=== PATIENT | male | born 1940 | race Caucasian/White ===

== ENCOUNTER → 2017-02-21 | Outpatient (CLI) | payer MEDICARE, BC | END | disposition home or self-care (01) | LOC: PCVCCLINIC 14:00 | PROVIDERS: ATTEND Internal Medicine | DX: I25.10 Atherosclerotic heart disease of native coronary artery without angina pectoris (principal); E78.5 Hyperlipidemia, unspecified; I65.23 Occlusion and stenosis of bilateral carotid arteries; I35.0 Nonrheumatic aortic (valve) stenosis; I10 Essential (primary) hypertension; K21.9 Gastro-esophageal reflux disease without esophagitis; E78.00 Pure hypercholesterolemia, unspecified; Z95.0 Presence of cardiac pacemaker; Z95.1 Presence of aortocoronary bypass graft; Z79.82 Long term (current) use of aspirin; Z79.899 Other long term (current) drug therapy | CPT/HCPCS: 80061; 93005; G0463 ==

== ENCOUNTER → 2017-08-29 | Outpatient (CLI) | payer MEDICARE, BC | END | disposition home or self-care (01) | LOC: PCVCCLINIC 11:00 | DX: I25.119 Atherosclerotic heart disease of native coronary artery with unspecified angina pectoris (principal); I35.0 Nonrheumatic aortic (valve) stenosis; I65.23 Occlusion and stenosis of bilateral carotid arteries; I10 Essential (primary) hypertension; E78.5 Hyperlipidemia, unspecified; R94.31 Abnormal electrocardiogram [ECG] [EKG]; Z95.0 Presence of cardiac pacemaker; Z79.899 Other long term (current) drug therapy | CPT/HCPCS: 80061; 93005; G0463 ==

== ENCOUNTER → 2017-11-26 | Outpatient (CLI) | payer MEDICARE | END | disposition home or self-care (01) | LOC: PCVCCLINIC 15:51 | DX: I25.10 Atherosclerotic heart disease of native coronary artery without angina pectoris (principal); I10 Essential (primary) hypertension; E78.5 Hyperlipidemia, unspecified; Z95.0 Presence of cardiac pacemaker | CPT/HCPCS: 93280 ==

== ENCOUNTER → 2018-02-25 | Outpatient (CLI) | payer MEDICARE ==
[~2018-02-25] MED LIST: REGADENOSON 0.4 MG/5 ML DISP.SYRIN. IV ONE
--- NOTE | 2018-02-25 09:03 | PCVCIMAG ---
APPROVED REPORT Study performed: 02/25/2018 07:43:54 EXAM: Comprehensive 2D, Doppler, and color-flow Echocardiogram Patient Location: Echo lab Status: routine BSA: 1.99 HR: 64 bpmBP: 132/78 mmHg Rhythm: Pacemaker Other Information Study Quality: Adequate Indications Pacemaker CAD AORTIC STENOSIS 2D Dimensions LVEF(%): 45.85 (>50%) IVSd: 14.19 (7-11mm)LVOT Diam: 22.26 (18-24mm) LVDd: 37.48 mm PWd: 14.62 (7-11mm)Ascending Ao: 37.75 (22-36mm) LVDs: 29.09 (25-40mm) Left Atrium: 44.49 (27-40mm) Aortic Root: 34.53 mm LV Single Plane 4CH: 53.32 % LV Single Plane 2CH: 50.03 %Juárez's LVEF: 51.67 % Biplane EF: 49.5 % Volumes Left Atrial Volume (Systole) Single Plane 4CH: 88.61 mLSingle Plane 2CH: 86.80 mL LA ESV Index: 47.00 mL/m2 Aortic Valve AoV Peak Cal.: 2.89 m/s AO Peak Gr.: 33.29 mmHgLVOT Max P.12 mmHg AO Mean Gr.: 17.08 mmHgLVOT Mean P.17 mmHg AO V2 Mean: 1.94 m/sLVOT Max V: 1.01 m/s AO V2 VTI: 58.51 cmLVOT Mean V: 0.71 m/s DELISA (VTI): 1.58 [id number] V1 VTI: 23.80 cm DELISA Vmax: 1.37 cm2 AI Vmax: 3.92 m/sSV (LVOT): 92.59 mL AI Wood: 2.28 m/s2 AI PHT: 498.50 ms Mitral Valve E/A Ratio: 1.4 MV Decel. Time: 200.61 ms MV E Max Cal.: 0.64 m/s MV A Cal.: 0.45 m/s IVRT: 121.11 ms Pulmonary Valve PV Peak Cal.: 0.90 m/sPV Peak Gr.: 3.22 mmHg Pulmonary Vein P Vein S: 0.24 m/sP Vein A: 0.25 m/s P Vein D: 0.36 m/sP Vein A Dur.: 166.1 msec P Vein S/D Ratio: 0.67 Tricuspid Valve TR Peak Cal.: 2.62 m/s TR Peak Gr.: 27.56 mmHg Left Ventricle The left ventricle is normal size. There is normal LV segmental wall motion. Moderate concentric left ventricular hypertrophy. Left ventricular systolic function is normal. The left ventricular ejection fraction is within the normal range. LVEF is 55%. Grade I - abnormal relaxation pattern. Right Ventricle The right ventricle is normal size. The right ventricular systolic function is normal. Pacemaker lead is present in the right ventricle. Atria Left atrium is moderately dilated. Right atrium is mildly dilated. Pacemaker lead is present in the right atrium. Aortic Valve The aortic valve is moderately calcified Mild to moderate aortic regurgitation. There is mild valvular aortic stenosis. Calculated aortic valve area is 1.4 cm2 with maximum pressure gradient of 33 mmHg and mean pressure gradient of 17 mmHg. Mitral Valve The mitral valve is normal in structure. Mild mitral regurgitation. No evidence of mitral valve stenosis. Tricuspid Valve The tricuspid valve is normal in structure. Mild tricuspid regurgitation with PAP of 35 mmHg. Pulmonic Valve The pulmonary valve is normal in structure. There is no pulmonic valvular regurgitation. Great Vessels The aortic root is normal in size. IVC is normal in size and collapses with >50% inspiration Pericardium There is no pericardial effusion. There is no pleural effusion. <Conclusion> Left ventricular systolic function is normal. There is normal LV segmental wall motion. LVEF is 55%. Mild diastolic dysfunction Both atria are moderately dilated. Pacing wires in right heart The aortic valve is moderately calcified Calculated aortic valve area is 1.4 cm2 with maximum pressure gradient of 33 mmHg and mean pressure gradient of 17 mmHg. Mild to moderate aortic regurgitation. Mild-moderate stenosis The mitral valve is normal in structure. Mild mitral regurgitation. Mild tricuspid regurgitation with pulmonary artery prressure of 35 mmHg. There is no pericardial effusion.
--- NOTE | 2018-02-25 11:08 | PCVCIMAG ---
APPROVED REPORT Imaging Protocol: Rest Tc-99m/Stress Tc-99m 1 day Study performed: 02/25/2018 08:47:34 Indication: CAD Patient Location: Out-Patient Stress Nurse: Marion Shankar RN, Tika Limon RN [place] Tech:Regina Murguiaabiodun [facility] Ht: 5 ft 9 in Wt: 184 lbs BSA: 1.99 m2 HR: 62 bpm BP: 172/73 mmHg BMI: 27.1 Rhythm: SR, LBBB Medical History Medical History: HTN, Hyperlipidemia, CVD, CAD, Pacemaker in situ, Age Medications: ASA, Atorvastatin, Lisinopril, Hytrin Allergies: Sulfa, Percodan Previous Cardiac Procedures: PCI - Stent to Mid LAD Pretest Chest Pain Characteristics: No chest pain Exercise History: Sedentary Resting Data Rest SPECT myocardial perfusion imaging was performed in supine position 45 minutes following the intravenous injection of 10.6 mCi of Tc-99m Sestamibi. Time of rest injection: 829 Date: 02/25/2018 Administration Route: IV Administration Site: Right Hand Pharmacologic Stress Pharmacologic stress test was performed by injecting Regadenoson 0.4 mg IV push over 10-15 seconds immediately followed by the intravenous injection of 32.7 mCi of Tc-99m Sestamibi. Time of stress injection: 944 Date: 02/25/2018 Administration Route: IV Administration Site: Right Hand Gated Stress SPECT was performed 45 minutes after stress injection. The images were gated to evaluate regional wall motion and calculate left ventricular ejection fraction. Comments Prior Nuclear Stress Test 07/2014: Perfusion Imaging: No evidence of stress induced ischemia or prior myocardial infarction. Normal left ventricular size and function with no regional wall motion abnormalities. Ejection fraction 75%. No relevant prior studies available currently for comparison. Clinical findings: Nonischemic Stress Test Details Stress Test: Pharmacologic stress testing performed using 0.4 mg of regadenoson per 5 mL given IV over 10 seconds. Reason for pharmacologic stress test: pacemaker. HR Resting HR: 62 bpmMax Heart Rate (APMHR): 142 bpm Max HR Achieved: 69 bpmTarget HR (85% APMHR): 120 bpm % of APMHR: 48 Recovery HR: 64 bpm BP Resting BP: 172/73 mmHg Max BP: 117/74 mmHg ECG Resting ECG: Sinus Rhythm, LBBB Stress ECG: Non-diagnostic due to LBBB ST Change: None Maximum ST Deviation: 0 mm Arrhythmia: None Recovery ECG: Sinus Rhythm, LBBB Recovery ST Change: Non-diagnostic due to LBBB Recovery Arrhythmia: None Clinical Reason for Termination: Completed protocol Stress Symptoms: Dyspnea Exercise duration: 0 min 55 sec Symptoms resolved with caffeine. Stress ECG Conclusion Clinical: Non-ischemic ECG: Non-diagnostic due to left bundle branch block Study Quality Study: Good Study Data Post stress, the left ventricular ejection was 72%.. SSS: 0 SRS: 0 SDS: 0 TID = 0.94. Perfusion No evidence of stress induced ischemia or prior myocardial infarction. Wall Motion Normal left ventricular size and function with no regional wall motion abnormalities. Nuclear Conclusion No evidence of stress induced ischemia or prior myocardial infarction. Normal left ventricular size and function with no regional wall motion abnormalities. Post stress, the left ventricular ejection was 72%.. No change since prior study dated July 2014. Interpreted by: Alonso Nino MD Electronically Approved: 02/25/2018 11:03:41 <Conclusion> Clinical: Non-ischemic ECG: Non-diagnostic due to left bundle branch block
== END | disposition home or self-care (01) ==
LOC: PCVCIMAG 10:12
PROVIDERS: ATTEND Internal Medicine
DX: I08.3 Combined rheumatic disorders of mitral, aortic and tricuspid valves (principal); I25.10 Atherosclerotic heart disease of native coronary artery without angina pectoris; I10 Essential (primary) hypertension; E78.5 Hyperlipidemia, unspecified; I65.23 Occlusion and stenosis of bilateral carotid arteries; Z95.0 Presence of cardiac pacemaker; Z79.82 Long term (current) use of aspirin; Z88.8 Allergy status to other drugs, medicaments and biological substances
CPT/HCPCS: 78452; 80061; 93005; 93017; 93280; 93306; A9500; G0463; J2785

== ENCOUNTER → 2018-08-26 | Outpatient (CLI) | payer MEDICARE | END | disposition home or self-care (01) | LOC: PCVCCLINIC 13:57 | PROVIDERS: ATTEND Internal Medicine | DX: I25.10 Atherosclerotic heart disease of native coronary artery without angina pectoris (principal); I35.0 Nonrheumatic aortic (valve) stenosis; I10 Essential (primary) hypertension; E78.5 Hyperlipidemia, unspecified; I65.23 Occlusion and stenosis of bilateral carotid arteries; K21.9 Gastro-esophageal reflux disease without esophagitis; E78.00 Pure hypercholesterolemia, unspecified; Z95.0 Presence of cardiac pacemaker | CPT/HCPCS: 36415; 80061; 93005; 93280; G0463 ==

== ENCOUNTER → 2019-02-15 | Outpatient (CLI) | payer MEDICARE ==
--- NOTE | 2019-02-15 15:36 | PCVCIMAG ---
APPROVED REPORT Study performed: 02/15/2019 13:34:36 EXAM: Comprehensive 2D, Doppler, and color-flow Echocardiogram Patient Location: Echo lab Status: routine BSA: 2.01 HR: 70 bpmBP: 142/60 mmHg Rhythm: NSR Other Information Study Quality: Adequate Risk Factors: Cardiac Risk Factors: HTN Indications Pacemaker CAD aortic stenosis 2D Dimensions IVSd: 15.74 (7-11mm)LVOT Diam: 22.15 (18-24mm) LVDd: 34.41 mm PWd: 16.05 (7-11mm)Ascending Ao: 39.43 (22-36mm) LVDs: 25.86 (25-40mm) Left Atrium: 40.21 (27-40mm) Aortic Root: 33.41 mm LV Single Plane 4CH: 48.58 % LV Single Plane 2CH: 62.02 % Biplane EF: 56.6 % Volumes Left Atrial Volume (Systole) Single Plane 4CH: 60.08 mLSingle Plane 2CH: 73.30 mL LA ESV Index: 34.00 mL/m2 Aortic Valve AoV Peak Cal.: 3.26 m/s AO Peak Gr.: 42.61 mmHgLVOT Max P.87 mmHg AO Mean Gr.: 23.16 mmHgLVOT Mean P.43 mmHg AO V2 Mean: 2.23 m/sLVOT Max V: 1.21 m/s AO V2 VTI: 73.27 cmLVOT Mean V: 0.86 m/s DELISA (VTI): 1.40 [id number] V1 VTI: 26.67 cm DELISA Vmax: 1.43 cm2 AI Vmax: 3.83 m/sSV (LVOT): 102.71 mL AI Taney: 2.54 m/s2 AI PHT: 438.08 ms Mitral Valve E/A Ratio: 1.0 MV Decel. Time: 223.28 ms MV E Max Cal.: 0.66 m/s MV A Cal.: 0.67 m/s IVRT: 141.87 ms Pulmonary Valve PV Peak Cal.: 1.19 m/sPV Peak Gr.: 5.63 mmHg Pulmonary Vein P Vein S: 0.28 m/sP Vein A: 0.32 m/s P Vein D: 0.40 m/sP Vein A Dur.: 138.4 msec P Vein S/D Ratio: 0.70 Tricuspid Valve TR Peak Cal.: 2.75 m/s TR Peak Gr.: 30.15 mmHg TV Vmax: 0.48 m/s Left Ventricle The left ventricle is normal size. There is normal LV segmental wall motion. Moderate concentric left ventricular hypertrophy. Left ventricular systolic function is normal. The left ventricular ejection fraction is within the normal range. LVEF is 60-65%. Mild diastolic dysfunction is present (impaired relaxation pattern). Right Ventricle The right ventricle is normal size. The right ventricular systolic function is normal. Pacemaker lead is present in the right ventricle. Atria Left atrium is at the upper limits of normal. The right atrium size is normal. Pacemaker lead is present in the right atrium. Aortic Valve The aortic valve is moderately calcified. Mild aortic regurgitation. There is moderate valvular aortic stenosis. Calculated aortic valve area is 1.4 cm2 with maximum pressure gradient of 43 mmHg and mean pressure gradient of 23 mmHg. Mitral Valve Mild mitral annular calcification Trace mitral regurgitation. No evidence of mitral valve stenosis. Tricuspid Valve The tricuspid valve is normal in structure. Mild tricuspid regurgitation with PAP of 37 mmHg. Pulmonic Valve The pulmonary valve is normal in structure. Trace pulmonic regurgitation. Great Vessels The aortic root is normal in size. The ascending aorta is mildly dilated (3.9 cm). IVC is normal in size and collapses >50% with inspiration. Pericardium There is no pericardial effusion. There is no pleural effusion. <Conclusion> Left ventricular systolic function is normal. There is normal LV segmental wall motion. Left ventricular hypertrophy LVEF is 60-65%. Mild diastolic dysfunction The aortic valve is moderately calcified, moderately stenotic. Mildly insufficient Calculated aortic valve area is 1.4 cm2 with maximum pressure gradient of 43 mmHg and mean pressure gradient of 23 mmHg. Mild mitral annular calcification. Trace mitral regurgitation. Mild tricuspid regurgitation with pulmonary artery pressure of 37 mmHg. The ascending aorta is mildly dilated (3.9 cm). There is no pericardial effusion.
== END | disposition home or self-care (01) ==
LOC: PCVCIMAG 13:06
PROVIDERS: ATTEND Internal Medicine
DX: I08.3 Combined rheumatic disorders of mitral, aortic and tricuspid valves (principal); I25.10 Atherosclerotic heart disease of native coronary artery without angina pectoris; I10 Essential (primary) hypertension; E78.5 Hyperlipidemia, unspecified; I65.23 Occlusion and stenosis of bilateral carotid arteries; C61 Malignant neoplasm of prostate; K21.9 Gastro-esophageal reflux disease without esophagitis; Z95.0 Presence of cardiac pacemaker
CPT/HCPCS: 93280; 93306; G0463

== ENCOUNTER → 2019-02-15 | Outpatient (CLI) | payer MEDICARE | END | disposition home or self-care (01) | LOC: PCVCCLINIC 14:30 | PROVIDERS: ATTEND Internal Medicine | DX: I25.10 Atherosclerotic heart disease of native coronary artery without angina pectoris (principal); I35.0 Nonrheumatic aortic (valve) stenosis; I10 Essential (primary) hypertension; E78.5 Hyperlipidemia, unspecified; I65.23 Occlusion and stenosis of bilateral carotid arteries; C61 Malignant neoplasm of prostate; Z95.0 Presence of cardiac pacemaker; Z88.2 Allergy status to sulfonamides; Z88.8 Allergy status to other drugs, medicaments and biological substances | CPT/HCPCS: 93280; G0463 ==